=== PATIENT | female | born 1980 | race Two or more races ===

== ENCOUNTER 2020-12-18 15:11 | Outpatient (CLI) | payer OTHER | END 2020-12-18 16:22 | disposition home or self-care (01) | LOC: OFIC 805 15:11 | PROVIDERS: ATTEND Otolaryngology Otology & Neurotology | DX: H90.11 Conductive hearing loss, unilateral, right ear, with unrestricted hearing on the contralateral side (principal); H71.21 Cholesteatoma of mastoid, right ear; H92.11 Otorrhea, right ear ==

== ENCOUNTER 2021-01-08 14:10 | Outpatient (CLI) | payer OTHER | END 2021-01-08 15:49 | disposition home or self-care (01) | LOC: OFIC 805 14:10 | PROVIDERS: ATTEND Otolaryngology Otology & Neurotology | DX: H90.11 Conductive hearing loss, unilateral, right ear, with unrestricted hearing on the contralateral side (principal); H71.21 Cholesteatoma of mastoid, right ear; H92.11 Otorrhea, right ear; H61.21 Impacted cerumen, right ear ==

== ENCOUNTER 2021-03-16 08:43 | Day surgery (SDC) | payer OTHER ==
[2021-03-16] MEDS ORDERED: AMOXICILLIN500 MG PO (14:05)
[2021-03-16] MEDS ORDERED: PERCOCET 5-3251 EACH PO (14:05)
== END 2021-03-16 17:15 | disposition home or self-care (01) ==
LOC: CIR.AMB 08:43
PROVIDERS: ATTEND Otolaryngology Otology & Neurotology
DX: H71.21 Cholesteatoma of mastoid, right ear (principal); H92.11 Otorrhea, right ear; Z20.822 Contact with and (suspected) exposure to COVID-19

== ENCOUNTER 2021-07-05 14:53 | Emergency (ER) | payer OTHER ==
[~2021-07-05] VITALS: Ht 162.6 cm; Wt 68.0 kg
[~2021-07-05 14:53] MED LIST: AMOXICILLIN500 MG PO; PERCOCET 5-3251 EACH PO
[2021-07-05] MEDS ORDERED: AMOX1TAB5 PO (17:06)
== END 2021-07-05 17:41 | disposition home or self-care (01) ==
LOC: ER 14:53
DX: H66.91 Otitis media, unspecified, right ear (principal); B96.5 Pseudomonas (aeruginosa) (mallei) (pseudomallei) as the cause of diseases classified elsewhere

== ENCOUNTER 2021-11-02 05:57 | Day surgery (SDC) | payer OTHER ==
[~2021-11-02 05:57] MED LIST changes: +AMOX1TAB5 PO
[2021-11-02] MEDS ORDERED: CILOXAN5 ML OTIC (11:32)
[2021-11-02] MEDS ORDERED: CEPHALEXIN500 M1 PO (11:32)
[2021-11-02] MEDS ORDERED: ZOFRAN8 MG PO (11:32)
== END 2021-11-02 13:40 | disposition home or self-care (01) ==
LOC: CIR.AMB 05:57
PROVIDERS: ATTEND Otolaryngology Otology & Neurotology
DX: H71.21 Cholesteatoma of mastoid, right ear (principal)